=== PATIENT | male | born 1940 | race Caucasian/White ===

== ENCOUNTER 2016-07-09 18:28 | Inpatient (IN) | payer MEDICARE, OTHER ==
[~2016-07-09] VITALS: Ht 170.2 cm; Wt 154.9 kg
[~2016-07-09 18:28] MED LIST: ACET500T33; ACID1TAB PO; ALLO300T PO; AMIT10TA PO; ASCO500T3 PO; ASPI-482 PO; BUDE10.2 IH; CALC667C PO; CARB1TAB2 PO; CARB1TAB47 PO; CHOL20004 PO; DONE10TA14 PO; DULO30CA2 PO; ERYT250T14 PO; FERR-26 PO; FURO40TA4 PO; GABA600T2 PO; GLIP5TAB10 PO; HYDR-2666 PO; HYDR-971 PO; HYDR100T24 PO; HYDR1TAB20 PO; HYDR25TA PO; INSU100C4 SQ; INSU100V8 SQ; IPRA3AMP23 IH; ISOS30TA4 PO; ISOS60TA2 PO; LACT1CAP2 PO; LISI2.5T PO; LISI40TA PO; LORA10TA3 PO; LOSA100T6 PO; MAGN400T22 PO; MELA3TAB PO; METF500T4 PO; METO25TA4 PO; METO50TA2 PO; OMEP20CA9 PO; OXYB5TAB7 PO; POLY17PO5 PO; ROPI1TAB2 PO; SENN1TAB5 PO; SERT25TA4 PO; SILV400C TP; SIMV40TA3 PO; SPIR25TA3 PO; TRYP30OI2 TP
[2016-07-09 19:16] LABS: BASO # 0.1 x10^3/uL (0.0-0.2); BASO % 1 % (0-3); EOS % 3 % (0-3); HEMATOCRIT 38.7 % (39.0-53.0); HEMOGLOBIN 12.7 g/dL (13.0-17.5); LYMPH # 1.9 x10^3/uL (1.0-4.8); LYMPH % 15 % (24-48); MEAN CORPUSCULAR HEMOGLOBIN 31 pg (25-35); MEAN CORPUSCULAR HGB CONC 33 g/dL (31-37); MEAN CORPUSCULAR VOLUME 95 fL (79-100); MONO % 5 % (0-9); NEUT % 76 % (31-73); PLATELET COUNT 163 x10^3/uL (140-400); RED BLOOD COUNT 4.08 x10^6/uL (4.30-5.70); RED CELL DISTRIBUTION WIDTH 15.2 % (11.5-14.5); WHITE BLOOD COUNT 12.6 x10^3/uL (4.0-11.0)
[2016-07-09 19:28] LABS: CALCIUM 8.3 mg/dL (8.5-10.1); CREATININE 2.1 mg/dL (0.7-1.3); GFR 30.9; POTASSIUM 5.2 mmol/L (3.5-5.1)
[2016-07-09] MEDS ORDERED: IV NORMAL SALINE 500ML BAG 500 ML IV ONE (21:15)
[2016-07-09] MEDS ORDERED: ACETAMINOPHEN 325 MG TABLET. PO PRN (21:15)
[2016-07-09] MEDS ORDERED: ONDANSETRON PF 4 MG/2 ML VIAL. IV PRN (21:15)
--- NOTE | 2016-07-09 21:16 | PHYS DOC ---
Past Medical History Past Medical History: Angina, CHF, Constipation, Depression, Diabetes-Type I, Diabetes-Type II, GERD, Hypertension, MRSA, Renal Failure, UTI, Other Additional Past Medical Histor: SEPTICEMIA,NEUROGENIC BLADDER,CHRONIC RESP FAILURE,ESRD,RLS,PARKINSON,LYMPH Past Surgical History: Cholecystectomy, Other Additional Past Surgical Histo: pain pump L abdomen, ulnar nerve surgery, R ARM SURG X9 Alcohol Use: None Drug Use: None Adult General Chief Complaint Chief Complaint: CHEST PAIN HPI HPI This is a 75 year old male presents with an acute episode of left upper chest pain that radiates into his left arm. Patient states the episode lasted approximately one hour. Patient upon arrival now states he is completely chest pain-free. Patient does have history of a heart catheterization in the last several years that did show some diseased vessels but he has no stents. Patient does have history of hypertension diabetes and morbid obesity. Currently he is in no acute distress and has no acute complaints. Review of Systems Review of Systems Constitutional: Denies fever or chills [] Eyes: Denies change in visual acuity, redness, or eye pain [] HENT: Denies nasal congestion or sore throat [] Respiratory: Denies cough or shortness of breath [] Cardiovascular: No additional information not addressed in HPI [] GI: Denies abdominal pain, nausea, vomiting, bloody stools or diarrhea [] : Denies dysuria or hematuria [] Musculoskeletal: Denies back pain or joint pain [] Integument: Denies rash or skin lesions [] Neurologic: Denies headache, focal weakness or sensory changes [] Endocrine: Denies polyuria or polydipsia [] Current Medications Current Medications Current Medications Medications (Trade) Dose Ordered Sig/[facility] Start Time Stop Time Status Last Admin Dose Admin Acetaminophen (Tylenol) 650 mg PRN Q4HRS PRN 07/09/16 21:15 07/10/16 21:14 Aspirin 325 mg 325 mg 1X ONCE 07/09/16 21:30 07/09/16 21:31 DC 07/09/16 21:26 325 MG Enoxaparin Sodium (Lovenox 100mg Syringe) 100 mg 1X ONCE 07/09/16 21:30 07/09/16 21:31 DC 07/09/16 21:29 100 MG Ondansetron HCl (Zofran) 4 mg PRN Q8HRS PRN 07/09/16 21:15 07/10/16 21:14 Sodium Chloride (Iv Sodium Chloride 0.9% 500ml Bag) 500 ml @ 500 mls/hr 1X ONCE 07/09/16 21:15 07/09/16 22:14 07/09/16 21:27 500 MLS/HR Allergies Allergies Allergies Coded Allergies Type Severity Reaction Last Updated Verified hydrocodone Allergy Intermediate 04/15/14 Yes codeine Adverse Reaction Intermediate disoriented 04/15/14 Yes metolazone Adverse Reaction Intermediate 04/15/14 Yes Physical Exam Physical Exam Constitutional: Well developed, well nourished, no acute distress, non-toxic appearance. [] HENT: Normocephalic, atraumatic, bilateral external ears normal, oropharynx moist, no oral exudates, nose normal. [] Eyes: PERRLA, EOMI, conjunctiva normal, no discharge. [] Neck: Normal range of motion, no tenderness, supple, no stridor. [] Cardiovascular:Heart rate regular rhythm, no murmur [] Lungs & Thorax: Bilateral breath sounds clear to auscultation [] Abdomen: Bowel sounds normal, soft, no tenderness, no masses, no pulsatile masses. [] Skin: Warm, dry, no erythema, no rash. [] Back: No tenderness, no CVA tenderness. [] Extremities: No tenderness, no cyanosis, no clubbing, ROM intact, no edema. [] Neurologic: Alert and oriented X 3, normal motor function, normal sensory function, no focal deficits noted. [] Psychologic: Affect normal, judgement normal, mood normal. [] Current Patient Data Vital Signs Vital Signs Date Time Temp Pulse Resp B/P Pulse Ox O2 Delivery O2 Flow Rate FiO2 07/09/16 19:43 66 22 223/88 97 Room Air 07/09/16 18:28 97.9 97.9 Lab Values Laboratory Tests Test 07/09/16 19:10 White Blood Count 12.6x10^3/uL (4.0-11.0) H Red Blood Count 4.08x10^6/uL (4.30-5.70) L Hemoglobin 12.7g/dL (13.0-17.5) L Hematocrit 38.7% (39.0-53.0) L Mean Corpuscular Volume 95fL (79-100) Mean Corpuscular Hemoglobin 31pg (25-35) Mean Corpuscular Hemoglobin Concent 33g/dL (31-37) Red Cell Distribution Width 15.2% (11.5-14.5) H Platelet Count 163x10^3/uL (140-400) Neutrophils (%) (Auto) 76% (31-73) H Lymphocytes (%) (Auto) 15% (24-48) L Monocytes (%) (Auto) 5% (0-9) Eosinophils (%) (Auto) 3% (0-3) Basophils (%) (Auto) 1% (0-3) Neutrophils # (Auto) 9.6x10^3uL (1.8-7.7) H Lymphocytes # (Auto) 1.9x10^3/uL (1.0-4.8) Monocytes # (Auto) 0.6x10^3/uL (0.0-1.1) Eosinophils # (Auto) 0.4x10^3/uL (0.0-0.7) Basophils # (Auto) 0.1x10^3/uL (0.0-0.2) Sodium Level 139mmol/L (136-145) Potassium Level 5.2mmol/L (3.5-5.1) H Chloride Level 100mmol/L (98-107) Carbon Dioxide Level 30mmol/L (21-32) Anion Gap 9 (6-14) Blood Urea Nitrogen 57mg/dL (8-26) H Creatinine 2.1mg/dL (0.7-1.3) H Estimated GFR (Cockcroft-Gault) 30.9 Glucose Level 400mg/dL (70-99) H Calcium Level 8.3mg/dL (8.5-10.1) L Troponin I Quantitative < 0.017ng/mL (0.000-0.055) Laboratory Tests 07/09/16 19:10 Laboratory Tests 07/09/16 19:10 EKG EKG EKG as interpreted by me shows a sinus rhythm with a rate of 66 bpm. There are no acute ST findings on this EKG. There does appear to be a right bundle-branch block. Radiology/Procedures Radiology/Procedures Portable one view of the chest as interpreted me shows some moderate vascular congestion and cardiomegaly but no other acute findings. Course & Med Decision Making Course & Med Decision Making Pertinent Labs and Imaging studies reviewed. (See chart for details) This is 75-year-old male who had a brief episode of chest pain prior to arrival that has fully resolved. Patient was given a full aspirin in the department. His first set of cardiac enzymes is negative. His EKG does not reveal any acute findings of ischemia. I discussed the case with the hospitalist, Dr. Bullard, who agreed to accept the patient cardio to consult. I discussed the case with the reach lift truck driver, Dr. Price, who agrees to see the patient for further evaluation and treatment and will likely catheterize the patient upon this hospital stay. I was also instructed to give the patient a dose of Lovenox therapy. Blood work reveals slightly elevated BUN/creatinine that he has history of as well as a hyperglycemia of 400. Dragon Disclaimer Dragon Disclaimer This electronic medical record was generated, in whole or in part, using a voice recognition dictation system. Departure Departure Impression: Primary Impression: Chest pain Disposition: ADMITTED INPATIENT Admitting Physician: Brionna Bullard Condition: STABLE Referrals: ABDI JANE NP (PCP) YESICA PAK DO Jul 09, 2016 21:17
[2016-07-09] MEDS ORDERED: ENOXAPARIN ** NOTE DOSE ** SYRINGE SQ ONE (21:30)
[2016-07-09] MEDS ORDERED: ASPIRIN 325 MG TABLET PO ONE (21:30)
[2016-07-09] MEDS ORDERED: HYDROCODONE/APAP 5/325MG TABLET. PO PRN (22:30)
[2016-07-10] VITALS (7 sets, daily range): BP systolic 125–159; BP diastolic 46–64
--- NOTE | 2016-07-10 02:55 | HP ---
ADMIT DATE: 07/09/2016 CHIEF COMPLAINT: Chest pain. HISTORY OF PRESENT ILLNESS: The patient is a pleasant middle-aged male who has multiple medical issues and he has polypharmacy as well. He has got 28 medications. He presents with chest pain rated as 7/10. He has got associated weakness and anxiety, some nausea. I discussed the case with the ER physician. We are going to admit the patient and consult Cardiology. PAST MEDICAL HISTORY: Polypharmacy, diabetes, hypertension, hyperlipidemia restless legs, neuropathy, chronic pain, arthritis, asthma, GERD. ALLERGIES: CODEINE, HYDROCODONE AND METOLAZONE. FAMILY HISTORY: Coronary artery disease. SOCIAL HISTORY: He is . He does not drink, smoke or take drugs. MEDICATIONS: Reviewed, please refer to the MRAD. REVIEW OF SYSTEMS: GENERAL: No history of weight change, weakness or fevers. SKIN: No bruising, hair changes or rashes. EYES: No blurred, double or loss of vision. NOSE AND THROAT: No history of nosebleeds, hoarseness or sore throat. HEART: He complains of intermittent chest pain. LUNGS: Denies cough, hemoptysis, wheezing or shortness of breath. GASTROINTESTINAL: Denies changes in appetite, nausea, vomiting, diarrhea or constipation. GENITOURINARY: No history of frequency, urgency, hesitancy or nocturia. NEUROLOGIC: Denies history of numbness, tingling, tremor or weakness. PSYCHIATRIC: No history of panic, anxiety or depression. ENDOCRINE: No history of heat or cold intolerance, polyuria or polydipsia. EXTREMITIES: Denies muscle weakness, joint pain, pain on walking or stiffness. PHYSICAL EXAMINATION: VITAL SIGNS: Stable. Temperature afebrile, pulse 64, respirations 18, blood pressure 150/61. GENERAL: He is alert, cooperative, but anxious. His is present. HEART: Normal S1, S2. LUNGS: Clear. ABDOMEN: Soft, positive bowel sounds, obese. EXTREMITIES: 1+ edema. SKIN: No rashes. PSYCHIATRIC: He is anxious. VASCULAR: Good capillary refill. ENDOCRINE: No thyromegaly. LYMPHATICS: No cervical nodes. HEMATOPOIETIC: No bruising. LABORATORY DATA: White count 12, hemoglobin 12, platelets 163. Electrolytes: Sodium 139, potassium 5.2, chloride 100, bicarb 30, BUN 57, creatinine 2.1, glucose 400. Troponin is 0. ASSESSMENT AND PLAN: Chest pain, rule out coronary disease. We will check serial enzymes, serial EKGs. Consult cardiology. Resume home medicines. Regarding his high potassium and acute renal failure, we will consult Nephrology, Physical Therapy, Occupational Therapy. PROGNOSIS: Guarded. NIAL Venus LARA DO DR: PENNY/deepak JOB#: [id number] / [id number]
[2016-07-10] MEDS: IPRATRPIUM/ALBUTEROL 0.5/2.5MG 3 ML NEBU. IH SCH ×7 (04:40→23:18)
[2016-07-10 05:22] LABS: BASO # 0.1 x10^3/uL (0.0-0.2); BASO % 1 % (0-3); EOS % 4 % (0-3); HEMATOCRIT 36.7 % (39.0-53.0); HEMOGLOBIN 12.2 g/dL (13.0-17.5); LYMPH # 2.5 x10^3/uL (1.0-4.8); LYMPH % 19 % (24-48); MEAN CORPUSCULAR HEMOGLOBIN 31 pg (25-35); MEAN CORPUSCULAR HGB CONC 33 g/dL (31-37); MEAN CORPUSCULAR VOLUME 94 fL (79-100); MONO % 6 % (0-9); NEUT % 72 % (31-73); PLATELET COUNT 170 x10^3/uL (140-400); RED BLOOD COUNT 3.91 x10^6/uL (4.30-5.70); WHITE BLOOD COUNT 13.3 x10^3/uL (4.0-11.0)
[2016-07-10] MEDS: ACETAMINOPHEN 500 MG TABLET PO SCH ×3 (06:00→12:00)
--- NOTE | 2016-07-10 06:19 | EKG ---
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
[2016-07-10] MEDS ORDERED: INSU100V13 SQ (07:31)
[2016-07-10] MEDS ORDERED: INSU100V31 SQ (07:31)
[2016-07-10] MEDS ORDERED: SAXA5TAB PO (07:33)
[2016-07-10] MEDS ORDERED: GLIPIZIDE 5 MG TABLET PO SCH (08:00)
--- NOTE | 2016-07-10 08:17 | RAD ---
Portable AP upright view CXR: Clinical indications: Left-sided chest pain today. Comparison: August 20, 2014. Findings: No acute lung infiltrate or pleural effusion or pulmonary edema or lung mass or pneumothorax is seen. The heart size, pulmonary vasculature, mediastinum and both maritza are stable. Impression: No acute radiographic abnormality is seen.
[2016-07-10] MEDS ORDERED: DEXTROSE 50% 25 GM / 50ML DISP.SYRIN. IV PRN (08:30)
[2016-07-10] MEDS ORDERED: SENNOSIDES/DOCUSATE 8.6/50MG TABLET. PO SCH (09:00)
[2016-07-10] MEDS: rOPINIRole 1 MG TABLET. PO SCH ×3 (09:00→21:14)
[2016-07-10] MEDS ORDERED: POLYETHYLENE GLYCOL 3350 17 GM PACKET. PO SCH (09:00)
[2016-07-10] MEDS ORDERED: ISOSORBIDE MONONITRATE 20 MG TABLET PO SCH (09:00)
[2016-07-10] MEDS: CARBIDOPA/LEVODOPA 25/100MG TABLET PO SCH ×3 (09:00→21:14)
[2016-07-10] MEDS ORDERED: OXYBUTYNIN CHLORIDE 5 MG TABLET PO SCH (09:00)
[2016-07-10] MEDS ORDERED: silver sulfADIAZINE 1% CREAM 25GM TUBE. TP SCH (09:00)
[2016-07-10] MEDS: ERYTHROMYCIN BASE 250 MG TABLET PO SCH ×2 (09:00→12:43)
[2016-07-10] MEDS ORDERED: LISINOPRIL 40 MG TABLET. PO SCH (09:00)
[2016-07-10] MEDS: METOPROLOL TART IMMED RELEASE 50 MG TABLET PO SCH ×2 (09:00→21:15)
--- NOTE | 2016-07-10 10:31 | PDOC2 ---
JASON RAYGOZA CHUCKING MACHINE SET UP OPERATOR TOOL 07/10/16 1031: CARDIAC CONSULT DATE OF CONSULT Date of Consult DATE: 07/10/16 TIME: 10:23 REASON FOR CONSULT Reason for Consult: Chest Pain REFERRING PHYSICIAN Referring Physician: Dr. Webb SOURCE Source: Chart review, Patient HISTORY OF PRESENT ILLNESS HISTORY OF PRESENT ILLNESS This is a 75 yo female who presented with complaints of left chest pain. Reports pain began around 6 pm last night. Located in his left chest and radiated to his left arm. Describes as "burning" sensation. Associated with shortness of breath and left arm numbness and tingling. Patient reports pain was worse with movement and with laying down. Resolved prior to arrival without intervention. Denies any palpitations, dizziness, diaphoresis, or n/v. Presently CP free. Patient reports having heart cath "awhile ago" more than seven years previous with Dr. Mejía. Reports mild blockage but not significant enough for intervention at that time. History of chronic bilateral LE lymphedema. Receives care at the [facility] in [place]. Reports sedentary lifestyle; uses electric wheelchair for mobility. PAST MEDICAL HISTORY Cardiovascular: CAD (non-obstructive ), CHF, HTN, CO, Hyperlipidemia Pulmonary: Asthma, COPD, Other (KELLIE) CENTRAL NERVOUS SYSTEM: CVA, Dementia, Other (Parkinsons ) GI: GERD Psych: Anxiety, Depression Musculoskeletal: Osteoarthritis Rheumatologic: No pertinent hx Infectious disease: No pertinent hx ENT: No pertinent hx Renal/: Chronic renal insuff Endocrine: Diabetes Dermatology: No pertinent hx PAST SURGICAL HISTORY Past Surgical History: Cholecystectomy, Other (pain pump insertion, right arm sx) FAMILY HISTORY Family History: Coronary Artery Disease, Diabetes SOCIAL HISTORY Smoke: No ALCOHOL: none Drugs: None Lives: with Family CURRENT MEDICATIONS CURRENT MEDICATIONS Current Medications Medications (Trade) Dose Ordered Sig/[place] PRN Reason Start Time Stop Time Status Last Admin Dose Admin Aspirin 325 mg 325 mg 1X ONCE PO 07/09/16 21:30 07/09/16 21:31 DC 07/09/16 21:26 Sodium Chloride (Iv Sodium Chloride 0.9% 500ml Bag) 500 ml @ 500 mls/hr 1X ONCE IV 07/09/16 21:15 07/09/16 22:14 DC 07/09/16 21:27 Enoxaparin Sodium (Lovenox 100mg Syringe) 100 mg 1X ONCE SQ 07/09/16 21:30 07/09/16 21:31 DC 07/09/16 21:29 Albuterol/ Ipratropium (Duoneb) 3 ml Q4HRS IH 07/10/16 00:00 07/10/16 10:08 ALLERGIES ALLERGIES: Coded Allergies: hydrocodone (Verified Allergy, Intermediate, 04/15/14) codeine (Verified Adverse Reaction, Intermediate, disoriented, 04/15/14) metolazone (Verified Adverse Reaction, Intermediate, 04/15/14) ROS Review of System 14 point ROS conducted with pertinent positives noted above in HPI PHYSICAL EXAM General: Alert, Oriented X3, Cooperative, No acute distress HEENT: Atraumatic, Mucous membr. moist/pink Lungs: Other (diminisheds bases, central chest tenderness upon palpitation ) Heart: Regular rate, Normal S1, Normal S2, Other (distant heart tones) Abdomen: Soft, Other (obesity ) Extremities: Other (2+ bilateral LE edema with chronic venous stasis changes) Skin: No breakdown Neuro: Normal speech, Sensation intact Psych/Mental Status: Mental status NL, Mood NL MUSCULOSKELETAL: Osteoarthritic changes both hands VITALS VITALS Vital Signs Date Time Temp Pulse Resp B/P Pulse Ox O2 Delivery O2 Flow Rate FiO2 07/10/16 10:08 95 Room Air 07/10/16 07:59 97.2 81 20 143/64 97.2 LABS Lab: Laboratory Tests Test 07/09/16 19:10 07/10/16 03:30 07/10/16 08:11 07/10/16 08:55 White Blood Count 12.6x10^3/uL (4.0-11.0) 13.3x10^3/uL (4.0-11.0) Red Blood Count 4.08x10^6/uL (4.30-5.70) 3.91x10^6/uL (4.30-5.70) Hemoglobin 12.7g/dL (13.0-17.5) 12.2g/dL (13.0-17.5) Hematocrit 38.7% (39.0-53.0) 36.7% (39.0-53.0) Mean Corpuscular Volume 95fL (79-100) 94fL (79-100) Mean Corpuscular Hemoglobin 31pg (25-35) 31pg (25-35) Mean Corpuscular Hemoglobin Concent 33g/dL (31-37) 33g/dL (31-37) Red Cell Distribution Width 15.2% (11.5-14.5) 15.0% (11.5-14.5) Platelet Count 163x10^3/uL (140-400) 170x10^3/uL (140-400) Neutrophils (%) (Auto) 76% (31-73) 72% (31-73) Lymphocytes (%) (Auto) 15% (24-48) 19% (24-48) Monocytes (%) (Auto) 5% (0-9) 6% (0-9) Eosinophils (%) (Auto) 3% (0-3) 4% (0-3) Basophils (%) (Auto) 1% (0-3) 1% (0-3) Neutrophils # (Auto) 9.6x10^3uL (1.8-7.7) 9.5x10^3uL (1.8-7.7) Lymphocytes # (Auto) 1.9x10^3/uL (1.0-4.8) 2.5x10^3/uL (1.0-4.8) Monocytes # (Auto) 0.6x10^3/uL (0.0-1.1) 0.7x10^3/uL (0.0-1.1) Eosinophils # (Auto) 0.4x10^3/uL (0.0-0.7) 0.5x10^3/uL (0.0-0.7) Basophils # (Auto) 0.1x10^3/uL (0.0-0.2) 0.1x10^3/uL (0.0-0.2) Sodium Level 139mmol/L (136-145) Potassium Level 5.2mmol/L (3.5-5.1) Chloride Level 100mmol/L (98-107) Carbon Dioxide Level 30mmol/L (21-32) Anion Gap 9 (6-14) Blood Urea Nitrogen 57mg/dL (8-26) Creatinine 2.1mg/dL (0.7-1.3) Estimated GFR (Cockcroft-Gault) 30.9 Glucose Level 400mg/dL (70-99) Calcium Level 8.3mg/dL (8.5-10.1) Troponin I Quantitative < 0.017ng/mL (0.000-0.055) < 0.017ng/mL (0.000-0.055) < 0.017ng/mL (0.000-0.055) Glucose (Fingerstick) 162mg/dL (70-99) ECHOCARDIOGRAM ECHOCARDIOGRAM <Conclusion> Technically very limited study. Left ventricle systolic function is normal. The Ejection Fraction is 55-60%. There is moderate concentric left ventricular hypertrophy. The right ventricle is not well visualized. The right atrium is not well visualized. Cardiac valves were not well visualized. PA pressure could not be accurately estimated. Due to poor image quality, the IVC could not be assessed. There is no evidence of significant pericardial effusion. DATE: 04/20/14 1418 STRESS TEST STRESS TEST Conclusion 1. Abnormal baseline EKG but no EKG evidence of stressed induced ischemia. 2. Nuclear scans showed no significant reversible ischemia. 3. Nuclear scan show a fixed inferior wall defect most consistent with a diaphragmatic attenuation defect. 4. Normal left ventricular systolic function with an ejection fraction of 72%. 5. Low to moderate risk Lexiscan nuclear stress test. DATE: 04/21/14 1340 ASSESSMENT/PLAN ASSESSMENT/PLAN 1. Chest Pain, with typical and atypical features 2. Malignant hypertension 3. Coronary artery disease, non-obstructive 4. Hyperlipidemia 5. Hyperkalemia 6. CLARISSE with CKD 7. Diabetes, II 8. Dementia 9. Morbid obesity 10. GERD 11. KELLIE Recommendations troponin series normal- AMI ruled out check lipids. ASA Pain possibly MSK in origin as it is reproducible with palpation to central chest but given history and significant risk factors, will proceed with echo to assess LV function/presence of WMA. Maintain blood pressure control. Home medications clarified; will resume home antiHTN thearpy and monitor trends to assess need for titration. Hydralazine PRN Problems: JAYCEE HAN MD 07/10/161948: CARDIAC CONSULT ALLERGIES ALLERGIES: Coded Allergies: hydrocodone (Verified Allergy, Intermediate, 04/15/14) codeine (Verified Adverse Reaction, Intermediate, disoriented, 04/15/14) metolazone (Verified Adverse Reaction, Intermediate, 04/15/14) ASSESSMENT/PLAN ASSESSMENT/PLAN Patient seen and examined. Agree with above nurse practitioner note. 75-year-old sedentary male who presents to the hospital in the setting of multiple complaints of muscular skeletal pain. His chest pain is clearly reproducible. This does not appear to be related to cardiac etiology. Medications reviewed. Laboratory studies reviewed. Continue supportive care. No further cardiac testing necessary. Patient will follow up with his primary care physician at the [facility]. Problems: JASON RAYGOZA APRN Jul 10, 2016 10:31 JAYCEE HAN MD Jul 10, 2016 19:49
[2016-07-10 11:38] LABS: CALCIUM 8.1 mg/dL (8.5-10.1); CREATININE 1.9 mg/dL (0.7-1.3); GFR 34.7; POTASSIUM 4.6 mmol/L (3.5-5.1)
[2016-07-10] MEDS ORDERED: GLIP10TA13 PO (12:34)
[2016-07-10] MEDS ORDERED: TERA2CAP3 PO (12:34)
[2016-07-10] MEDS ORDERED: ISOS10TA4 PO (12:34)
[2016-07-10] MEDS ORDERED: DOCU100C5 PO (12:34)
[2016-07-10] MEDS ORDERED: ASCO500T3 PO (12:34)
[2016-07-10] MEDS ORDERED: ATOR20TA58 PO (12:34)
[2016-07-10] MEDS ORDERED: MAGN400T3 PO (12:34)
[2016-07-10] MEDS ORDERED: BUME2TAB PO (12:34)
[2016-07-10] MEDS ORDERED: SPIR25TA3 PO (12:34)
[2016-07-10] MEDS ORDERED: BUMETANIDE 1 MG TABLET PO SCH (12:45)
[2016-07-10] MEDS ORDERED: SPIRONOLACTONE 25 MG TABLET PO SCH (12:45)
[2016-07-10] MEDS ORDERED: hydrALAZINE 20 MG/ML VIAL. IVP PRN ×2 (13:00→15:30)
[2016-07-10 13:21] LABS: CHOLESTEROL/HDL RATIO 3.6
[2016-07-10] MEDS: GABAPENTIN 300 MG CAPSULE. PO SCH ×2 (15:00→21:14)
--- NOTE | 2016-07-10 15:30 | PDOC2 ---
CONSULT Date of Consult Date of Consult DATE: 07/10/16 TIME: 15:29 Reason for Consult Reason for Consult: ^ creat Referring Physician Referring Physician: Dr Bullard Source Source: Chart review, Patient Past Medical History Cardiovascular: CAD (non-obstructive ), CHF, HTN, [place], Hyperlipidemia Pulmonary: Asthma, COPD, Other (KELLIE) CENTRAL NERVOUS SYSTEM: CVA, Dementia, Other (Parkinsons ) GI: GERD Heme/Onc: Anemia NOS Hepatobiliary: No pertinent hx Psych: Anxiety, Depression Musculoskeletal: Osteoarthritis Rheumatologic: No pertinent hx Infectious disease: No pertinent hx ENT: No pertinent hx Renal/: Chronic renal insuff Endocrine: Diabetes Dermatology: No pertinent hx Past Surgical History Past Surgical History: Cholecystectomy, Other (pain pump insertion, right arm sx) Family History Family History: Coronary Artery Disease, Diabetes Social History No ALCOHOL: none Drugs: None Lives: with Family Domestic Violence: Neg Current Problem List Problem List Problems Medical Problems: (1) Abdominal pain Status: Acute (2) Chest pain Status: Acute (3) Hypertensive urgency Status: Acute Current Medications Current Medications Current Medications Aspirin 325 mg 325 mg 1X ONCE PO Last administered on 07/09/16 21:26; Start at 21:30; Stop 07/09/16 at 21:31; Status DC Sodium Chloride (Iv Sodium Chloride 0.9% 500ml Bag) 500 ml @ 500 mls/hr 1X ONCE IV Last administered on 07/09/16 21:27; Start 07/09/16 at 21:15; Stop at 22:14; Status DC Ondansetron HCl (Zofran) 4 mg PRN Q8HRS PRN IV NAUSEA/VOMITING; Start 07/09/16 at 21:15; Stop 07/10/16 at 21:14 Acetaminophen (Tylenol) 650 mg PRN Q4HRS PRN PO FEVER; Start 07/09/16 at 21:15; Stop 07/10/16 at 21:14 Enoxaparin Sodium (Lovenox 100mg Syringe) 100 mg 1X ONCE SQ Last administered on 07/09/16 21:29; Start 07/09/16 at 21:30; Stop 07/09/16 at 21:31; Status DC Acetaminophen (Tylenol) 500 mg Q6HRS PO ; Start 07/10/16 at 00:00; Stop at 14:49; Status DC Aspirin (Ecotrin) 81 mg DAILY PO ; Start 07/10/16 at 09:00 Carbidopa/Levodopa (Sinemet 25/100) 1 tab TID PO ; Start 07/10/16 at 09:00 Duloxetine HCl (Cymbalta) 30 mg DAILY PO ; Start 07/10/16 at 09:00 Erythromycin (E-Mycin) 125 mg QID PO ; Start 07/10/16 at 09:00; Stop 07/10/16 at 14:49; Status DC Ferrous Sulfate (Feosol) 325 mg DAILY PO ; Start 07/10/16 at 09:00 Glipizide (Glucotrol) 5 mg BIDWMEALS PO ; Start 07/10/16 at 08:00; Stop at 12:48; Status DC Acetaminophen/ Hydrocodone Bitart (Lortab 5/325) 1 tab PRN Q6HRS PRN PO PAIN; Start 07/09/16 at 22:30 Albuterol/ Ipratropium (Duoneb) 3 ml Q4HRS IH Last administered on 07/10/16t 12 :57; Start 07/10/16 at 00:00 Isosorbide Mononitrate (Ismo) 20 mg TID PO ; Start 07/10/16 at 09:00; Stop 07/10 at 12:48; Status DC Lisinopril (Prinivil) 40 mg DAILY PO ; Start 07/10/16 at 09:00; Stop 07/10/16 at 12:48; Status DC Metoprolol Tartrate (Lopressor) 50 mg BID PO ; Start 07/10/16 at 09:00 Oxybutynin Chloride (Ditropan) 5 mg DAILY PO ; Start 07/10/16 at 09:00; Stop 03/16 at 12:48; Status DC Polyethylene Glycol (miraLAX PACKET) 17 gm DAILY PO ; Start 07/10/16 at 09:00; Stop 07/10/16 at 14:49; Status DC Ropinirole HCl (Requip) 1 mg TID PO ; Start 07/10/16 at 09:00 Senna/Docusate Sodium (Senna Plus) 1 tab BID PO ; Start 07/10/16 at 09:00; Stop 07/10/16 at 14:49; Status DC Silver Sulfadiazine (Silvadene) 1 bijal DAILY TP ; Start 07/10/16 at 09:00; Stop 07/10/16 at 14:49; Status DC Dextrose 12.5 gm PRN Q15MIN PRN IV SEE COMMENTS; Start 07/10/16 at 08:30 Glipizide (Glucotrol) 10 mg BIDWMEALS PO ; Start 07/10/16 at 17:00 Isosorbide Mononitrate (Imdur) 30 mg DAILY PO ; Start 07/10/16 at 12:45 Spironolactone (Aldactone) 25 mg DAILY PO ; Start 07/10/16 at 12:45 Bumetanide (Bumex) 2 mg DAILY PO ; Start 07/10/16 at 12:45 Atorvastatin Calcium (Lipitor) 20 mg QHS PO ; Start 07/10/16 at 21:00 Hydralazine HCl (Apresoline) 10 mg PRN Q4HRS PRN IVP ELEVATED BP, SEE COMMENTS ; Start 07/10/16 at 13:00 Ascorbic Acid (Vitamin C) 500 mg DAILY PO ; Start 07/10/16 at 15:00 Docusate Sodium (Colace) 100 mg BID PO ; Start 07/10/16 at 21:00 Insulin Aspart (Novolog) 30 units DAILYBFRSUP SQ ; Start 07/10/16 at 16:30 Magnesium Oxide (Magnesium Oxide) 400 mg BID PO ; Start 07/10/16 at 21:00 Gabapentin (Neurontin) 600 mg TID PO ; Start 07/10/16 at 15:00 Insulin Aspart (Novolog) 20 units BIDWBKFT/EDUIN SQ ; Start 07/11/16 at 08:00 Insulin Detemir (Levemir) 80 units DAILY08 SQ ; Start 07/11/16 at 08:00 Linagliptin (Tradjenta) 5 mg DAILY PO ; Start 07/11/16 at 09:00 Terazosin HCl (Hytrin) 2 mg QHS PO ; Start 07/10/16 at 21:00 Active Scripts Active Reported Isosorbide Mononitrate 10 Mg Tablet 30 Mg PO DAILY Ascorbic Acid 500 Mg Tablet 500 Mg PO DAILY Magnesium Oxide 400 Mg Tablet 1 Tab PO BID Bumetanide 2 Mg Tablet 1 Tab PO DAILY Glipizide 10 Mg Tablet 1 Tab PO BID Atorvastatin Calcium 20 Mg Tablet 1 Tab PO DAILY Terazosin Hcl 2 Mg Capsule 1 Cap PO QHS Docusate Sodium 100 Mg Capsule 1 Cap PO BID Spironolactone 25 Mg Tablet 1 Tab PO DAILY Onglyza (Saxagliptin Hcl) 5 Mg Tablet 2.5 Mg PO DAILY Levemir (Insulin Detemir) 100 Unit/1 Ml Vial 80 Unit SQ DAILY08 Novolog (Insulin Aspart) 100 Unit/1 Ml Vial 30 Unit SQ DAILYBFRSUP Cymbalta (Duloxetine Hcl) 30 Mg Capsule.dr 1 Cap PO DAILY Sinemet 25-100 Mg Tablet (Carbidopa/Levodopa) 1 Each Tablet 1 Tab PO TID Metoprolol Tartrate 50 Mg Tablet 1 Tab PO BID Ropinirole Hcl 1 Mg Tablet 1 Mg PO TID Omeprazole 20 Mg Capsule.dr 20 Mg PO DAILY Novolog (Insulin Aspart) 100 Unit/1 Ml Cartridge 20 Unit SQ BIDWBKFT/EDUIN Gabapentin 600 Mg Tablet 600 Mg PO TID Ferrous Sulfate 325 Mg Tablet 325 Mg PO DAILY Aspir 81 (Aspirin) 81 Mg Tablet.dr 81 Mg PO DAILY Allergies Allergies: Coded Allergies: hydrocodone (Verified Allergy, Intermediate, 04/15/14) codeine (Verified Adverse Reaction, Intermediate, disoriented, 04/15/14) metolazone (Verified Adverse Reaction, Intermediate, 04/15/14) ROS Review of System GEN: no Fevers no Chills EYES: no new Visual Complaints ENT: no EN Drainage no Hearing deficiets CVS: no Orthopnea + CP + Ch Lymphedema RESP: no SOB no CORRIGAN GI: no Nausea no Vomiting : no Dysuria no Urgency HEME: no easy bruising no Palp Ly Nodes NEURO no Focal Weakness no Sz PSYCH: no Suicidal Ideation no Depression SKIN: no Rashes ENDO: no Polyuria or Polydipsia no Hot/Cold Intolerance MU SK: ch Arthraigia no Myalgia Physical Exam Physical Exam General Appearance: Awake Alert Oriented x 3 In no Distress; Morbidly obese and Bald Eyes: VIsion Unchanged Conjunctiva Normal EN: No EN Drainage Mucous Memb. moist Neck: no JVD no JVP Supple no Thyromegaly; Thick neck with Double chin CVS: S1 S2 no Murmur No Gallop No Rub Tr Edema Resp: no Rales no Rhonchi no Acc. Muscle use - Distal BS GI: BS +ve NO Bruit Non Tender Non Distended - morbidly Obese : no CVA tenderness; no Suprapubic Tenderness SKIN: no Rashes Breast Exam deferred Mu.Sk: Dec ROM no Muscle Atrophy Heme: Unable to palpate Obvious LAD no pal p Splenomegaly NEURO: Decreased Strength in lower ext Cranial Nerves II - XII grossly intact Psych: no Depressed no Active hallucination Vital Signs Vital Signs Date Time Temp Pulse Resp B/P Pulse Ox O2 Delivery O2 Flow Rate FiO2 07/10/16 12:58 95 Room Air 07/10/16 11:55 97.3 93 21 159/58 97.3 Assessment & Plan [place] - suspect VMn due to Diuretics. Current FLuid and E-lyte status does not necessitate emergent need for Dialysis. ? CKD III - will need 24hr Urine collection to assess baseline Renal function due to poor muscle turnover asso with Inactivity AEdema - mostly [id number] associated and dependency related HTN: Current BP meds reviewed. See orders for changes. vol Dpeltion - due to Diuretics - No IVF ordered, hold Diuretics for 48 hrs Discussed Plan of Care and prognosis etc. at length with family. Labs Labs Laboratory Tests Test 07/09/16 19:10 07/10/16 03:30 07/10/16 08:11 07/10/16 08:55 White Blood Count 12.6x10^3/uL (4.0-11.0) 13.3x10^3/uL (4.0-11.0) Red Blood Count 4.08x10^6/uL (4.30-5.70) 3.91x10^6/uL (4.30-5.70) Hemoglobin 12.7g/dL (13.0-17.5) 12.2g/dL (13.0-17.5) Hematocrit 38.7% (39.0-53.0) 36.7% (39.0-53.0) Mean Corpuscular Volume 95fL (79-100) 94fL (79-100) Mean Corpuscular Hemoglobin 31pg (25-35) 31pg (25-35) Mean Corpuscular Hemoglobin Concent 33g/dL (31-37) 33g/dL (31-37) Red Cell Distribution Width 15.2% (11.5-14.5) 15.0% (11.5-14.5) Platelet Count 163x10^3/uL (140-400) 170x10^3/uL (140-400) Neutrophils (%) (Auto) 76% (31-73) 72% (31-73) Lymphocytes (%) (Auto) 15% (24-48) 19% (24-48) Monocytes (%) (Auto) 5% (0-9) 6% (0-9) Eosinophils (%) (Auto) 3% (0-3) 4% (0-3) Basophils (%) (Auto) 1% (0-3) 1% (0-3) Neutrophils # (Auto) 9.6x10^3uL (1.8-7.7) 9.5x10^3uL (1.8-7.7) Lymphocytes # (Auto) 1.9x10^3/uL (1.0-4.8) 2.5x10^3/uL (1.0-4.8) Monocytes # (Auto) 0.6x10^3/uL (0.0-1.1) 0.7x10^3/uL (0.0-1.1) Eosinophils # (Auto) 0.4x10^3/uL (0.0-0.7) 0.5x10^3/uL (0.0-0.7) Basophils # (Auto) 0.1x10^3/uL (0.0-0.2) 0.1x10^3/uL (0.0-0.2) Sodium Level 139mmol/L (136-145) 141mmol/L (136-145) Potassium Level 5.2mmol/L (3.5-5.1) 4.6mmol/L (3.5-5.1) Chloride Level 100mmol/L (98-107) 103mmol/L (98-107) Carbon Dioxide Level 30mmol/L (21-32) 27mmol/L (21-32) Anion Gap 9 (6-14) 11 (6-14) Blood Urea Nitrogen 57mg/dL (8-26) 50mg/dL (8-26) Creatinine 2.1mg/dL (0.7-1.3) 1.9mg/dL (0.7-1.3) Estimated GFR (Cockcroft-Gault) 30.9 34.7 Glucose Level 400mg/dL (70-99) 172mg/dL (70-99) Calcium Level 8.3mg/dL (8.5-10.1) 8.1mg/dL (8.5-10.1) Troponin I Quantitative < 0.017ng/mL (0.000-0.055) < 0.017ng/mL (0.000-0.055) < 0.017ng/mL (0.000-0.055) Glucose (Fingerstick) 162mg/dL (70-99) Magnesium Level 2.0mg/dL (1.8-2.4) Triglycerides Level 162mg/dL (0-150) Cholesterol Level 124mg/dL (0-200) LDL Cholesterol, Calculated 58mg/dL (0-100) VLDL Cholesterol, Calculated 32mg/dL (0-40) HDL Cholesterol 34mg/dL (40-60) Cholesterol/HDL Ratio 3.6 Test 07/10/16 11:59 Glucose (Fingerstick) 199mg/dL (70-99) Laboratory Tests Test 07/09/16 19:10 07/10/16 03:30 07/10/16 08:11 07/10/16 08:55 White Blood Count 12.6x10^3/uL (4.0-11.0) 13.3x10^3/uL (4.0-11.0) Red Blood Count 4.08x10^6/uL (4.30-5.70) 3.91x10^6/uL (4.30-5.70) Hemoglobin 12.7g/dL (13.0-17.5) 12.2g/dL (13.0-17.5) Hematocrit 38.7% (39.0-53.0) 36.7% (39.0-53.0) Mean Corpuscular Volume 95fL (79-100) 94fL (79-100) Mean Corpuscular Hemoglobin 31pg (25-35) 31pg (25-35) Mean Corpuscular Hemoglobin Concent 33g/dL (31-37) 33g/dL (31-37) Red Cell Distribution Width 15.2% (11.5-14.5) 15.0% (11.5-14.5) Platelet Count 163x10^3/uL (140-400) 170x10^3/uL (140-400) Neutrophils (%) (Auto) 76% (31-73) 72% (31-73) Lymphocytes (%) (Auto) 15% (24-48) 19% (24-48) Monocytes (%) (Auto) 5% (0-9) 6% (0-9) Eosinophils (%) (Auto) 3% (0-3) 4% (0-3) Basophils (%) (Auto) 1% (0-3) 1% (0-3) Neutrophils # (Auto) 9.6x10^3uL (1.8-7.7) 9.5x10^3uL (1.8-7.7) Lymphocytes # (Auto) 1.9x10^3/uL (1.0-4.8) 2.5x10^3/uL (1.0-4.8) Monocytes # (Auto) 0.6x10^3/uL (0.0-1.1) 0.7x10^3/uL (0.0-1.1) Eosinophils # (Auto) 0.4x10^3/uL (0.0-0.7) 0.5x10^3/uL (0.0-0.7) Basophils # (Auto) 0.1x10^3/uL (0.0-0.2) 0.1x10^3/uL (0.0-0.2) Sodium Level 139mmol/L (136-145) 141mmol/L (136-145) Potassium Level 5.2mmol/L (3.5-5.1) 4.6mmol/L (3.5-5.1) Chloride Level 100mmol/L (98-107) 103mmol/L (98-107) Carbon Dioxide Level 30mmol/L (21-32) 27mmol/L (21-32) Anion Gap 9 (6-14) 11 (6-14) Blood Urea Nitrogen 57mg/dL (8-26) 50mg/dL (8-26) Creatinine 2.1mg/dL (0.7-1.3) 1.9mg/dL (0.7-1.3) Estimated GFR (Cockcroft-Gault) 30.9 34.7 Glucose Level 400mg/dL (70-99) 172mg/dL (70-99) Calcium Level 8.3mg/dL (8.5-10.1) 8.1mg/dL (8.5-10.1) Troponin I Quantitative < 0.017ng/mL (0.000-0.055) < 0.017ng/mL (0.000-0.055) < 0.017ng/mL (0.000-0.055) Glucose (Fingerstick) 162mg/dL (70-99) Magnesium Level 2.0mg/dL (1.8-2.4) Triglycerides Level 162mg/dL (0-150) Cholesterol Level 124mg/dL (0-200) LDL Cholesterol, Calculated 58mg/dL (0-100) VLDL Cholesterol, Calculated 32mg/dL (0-40) HDL Cholesterol 34mg/dL (40-60) Cholesterol/HDL Ratio 3.6 Test 07/10/16 11:59 Glucose (Fingerstick) 199mg/dL (70-99) FANTASMA NAZARIO MD Jul 10, 2016 15:30
--- NOTE | 2016-07-10 15:36 | PDOC ---
PROGRESS NOTES Chief Complaint Chief Complaint CC: chest pain 1. Chest Pain, possible MSK related 2. HTN not controlled 3. Coronary artery disease, non-obstructive 4. Hyperlipidemia 5. Hyperkalemia 6. CLARISSE with CKD 7. Diabetes, II insulin dep 8. Dementia 9. Morbid obesity Plan 3 sets of troponin Echo cardiogram pending VQ scan r/o PE SSI Home medications reviewed, medications corrected, d/w RN, Earlier medications started on him were not correct. SSI PRN hydralazine for HTN Renal functions monitor, nephrology consultation pending Decreed physical mobility DVT prophylaxis. Prognosis guarded. Vitals Vitals Vital Signs Date Time Temp Pulse Resp B/P Pulse Ox O2 Delivery O2 Flow Rate FiO2 07/10/16 12:58 95 Room Air 07/10/16 11:55 97.3 93 21 159/58 97.3 Physical Exam General: Alert, Oriented X3, Cooperative, No acute distress, Other (obese) Heart: Regular rate, Normal S1, Normal S2, Other (distant heart tones) Lungs: Clear, Other Abdomen: Soft, Other (obesity ) Extremities: Other (2+ bilateral LE edema with chronic venous stasis changes) Skin: No breakdown Labs LABS Laboratory Tests Test 07/09/16 19:10 07/10/16 03:30 07/10/16 08:11 07/10/16 08:55 White Blood Count 12.6x10^3/uL (4.0-11.0) 13.3x10^3/uL (4.0-11.0) Red Blood Count 4.08x10^6/uL (4.30-5.70) 3.91x10^6/uL (4.30-5.70) Hemoglobin 12.7g/dL (13.0-17.5) 12.2g/dL (13.0-17.5) Hematocrit 38.7% (39.0-53.0) 36.7% (39.0-53.0) Mean Corpuscular Volume 95fL (79-100) 94fL (79-100) Mean Corpuscular Hemoglobin 31pg (25-35) 31pg (25-35) Mean Corpuscular Hemoglobin Concent 33g/dL (31-37) 33g/dL (31-37) Red Cell Distribution Width 15.2% (11.5-14.5) 15.0% (11.5-14.5) Platelet Count 163x10^3/uL (140-400) 170x10^3/uL (140-400) Neutrophils (%) (Auto) 76% (31-73) 72% (31-73) Lymphocytes (%) (Auto) 15% (24-48) 19% (24-48) Monocytes (%) (Auto) 5% (0-9) 6% (0-9) Eosinophils (%) (Auto) 3% (0-3) 4% (0-3) Basophils (%) (Auto) 1% (0-3) 1% (0-3) Neutrophils # (Auto) 9.6x10^3uL (1.8-7.7) 9.5x10^3uL (1.8-7.7) Lymphocytes # (Auto) 1.9x10^3/uL (1.0-4.8) 2.5x10^3/uL (1.0-4.8) Monocytes # (Auto) 0.6x10^3/uL (0.0-1.1) 0.7x10^3/uL (0.0-1.1) Eosinophils # (Auto) 0.4x10^3/uL (0.0-0.7) 0.5x10^3/uL (0.0-0.7) Basophils # (Auto) 0.1x10^3/uL (0.0-0.2) 0.1x10^3/uL (0.0-0.2) Sodium Level 139mmol/L (136-145) 141mmol/L (136-145) Potassium Level 5.2mmol/L (3.5-5.1) 4.6mmol/L (3.5-5.1) Chloride Level 100mmol/L (98-107) 103mmol/L (98-107) Carbon Dioxide Level 30mmol/L (21-32) 27mmol/L (21-32) Anion Gap 9 (6-14) 11 (6-14) Blood Urea Nitrogen 57mg/dL (8-26) 50mg/dL (8-26) Creatinine 2.1mg/dL (0.7-1.3) 1.9mg/dL (0.7-1.3) Estimated GFR (Cockcroft-Gault) 30.9 34.7 Glucose Level 400mg/dL (70-99) 172mg/dL (70-99) Calcium Level 8.3mg/dL (8.5-10.1) 8.1mg/dL (8.5-10.1) Troponin I Quantitative < 0.017ng/mL (0.000-0.055) < 0.017ng/mL (0.000-0.055) < 0.017ng/mL (0.000-0.055) Glucose (Fingerstick) 162mg/dL (70-99) Magnesium Level 2.0mg/dL (1.8-2.4) Triglycerides Level 162mg/dL (0-150) Cholesterol Level 124mg/dL (0-200) LDL Cholesterol, Calculated 58mg/dL (0-100) VLDL Cholesterol, Calculated 32mg/dL (0-40) HDL Cholesterol 34mg/dL (40-60) Cholesterol/HDL Ratio 3.6 Test 07/10/16 11:59 Glucose (Fingerstick) 199mg/dL (70-99) Assessment and Plan Assessmemt and Plan Problems Medical Problems: (1) Abdominal pain Status: Acute (2) Chest pain Status: Acute (3) Hypertensive urgency Status: Acute Problems: Comment Review of Relevant I have reviewed the following items dodie (where applicable) has been applied. Labs Laboratory Tests Test 07/09/16 19:10 07/10/16 03:30 07/10/16 08:11 07/10/16 08:55 White Blood Count 12.6x10^3/uL (4.0-11.0) 13.3x10^3/uL (4.0-11.0) Red Blood Count 4.08x10^6/uL (4.30-5.70) 3.91x10^6/uL (4.30-5.70) Hemoglobin 12.7g/dL (13.0-17.5) 12.2g/dL (13.0-17.5) Hematocrit 38.7% (39.0-53.0) 36.7% (39.0-53.0) Mean Corpuscular Volume 95fL (79-100) 94fL (79-100) Mean Corpuscular Hemoglobin 31pg (25-35) 31pg (25-35) Mean Corpuscular Hemoglobin Concent 33g/dL (31-37) 33g/dL (31-37) Red Cell Distribution Width 15.2% (11.5-14.5) 15.0% (11.5-14.5) Platelet Count 163x10^3/uL (140-400) 170x10^3/uL (140-400) Neutrophils (%) (Auto) 76% (31-73) 72% (31-73) Lymphocytes (%) (Auto) 15% (24-48) 19% (24-48) Monocytes (%) (Auto) 5% (0-9) 6% (0-9) Eosinophils (%) (Auto) 3% (0-3) 4% (0-3) Basophils (%) (Auto) 1% (0-3) 1% (0-3) Neutrophils # (Auto) 9.6x10^3uL (1.8-7.7) 9.5x10^3uL (1.8-7.7) Lymphocytes # (Auto) 1.9x10^3/uL (1.0-4.8) 2.5x10^3/uL (1.0-4.8) Monocytes # (Auto) 0.6x10^3/uL (0.0-1.1) 0.7x10^3/uL (0.0-1.1) Eosinophils # (Auto) 0.4x10^3/uL (0.0-0.7) 0.5x10^3/uL (0.0-0.7) Basophils # (Auto) 0.1x10^3/uL (0.0-0.2) 0.1x10^3/uL (0.0-0.2) Sodium Level 139mmol/L (136-145) 141mmol/L (136-145) Potassium Level 5.2mmol/L (3.5-5.1) 4.6mmol/L (3.5-5.1) Chloride Level 100mmol/L (98-107) 103mmol/L (98-107) Carbon Dioxide Level 30mmol/L (21-32) 27mmol/L (21-32) Anion Gap 9 (6-14) 11 (6-14) Blood Urea Nitrogen 57mg/dL (8-26) 50mg/dL (8-26) Creatinine 2.1mg/dL (0.7-1.3) 1.9mg/dL (0.7-1.3) Estimated GFR (Cockcroft-Gault) 30.9 34.7 Glucose Level 400mg/dL (70-99) 172mg/dL (70-99) Calcium Level 8.3mg/dL (8.5-10.1) 8.1mg/dL (8.5-10.1) Troponin I Quantitative < 0.017ng/mL (0.000-0.055) < 0.017ng/mL (0.000-0.055) < 0.017ng/mL (0.000-0.055) Glucose (Fingerstick) 162mg/dL (70-99) Magnesium Level 2.0mg/dL (1.8-2.4) Triglycerides Level 162mg/dL (0-150) Cholesterol Level 124mg/dL (0-200) LDL Cholesterol, Calculated 58mg/dL (0-100) VLDL Cholesterol, Calculated 32mg/dL (0-40) HDL Cholesterol 34mg/dL (40-60) Cholesterol/HDL Ratio 3.6 Test 07/10/16 11:59 Glucose (Fingerstick) 199mg/dL (70-99) Laboratory Tests Test 07/09/16 19:10 07/10/16 03:30 07/10/16 08:11 07/10/16 08:55 White Blood Count 12.6x10^3/uL (4.0-11.0) 13.3x10^3/uL (4.0-11.0) Red Blood Count 4.08x10^6/uL (4.30-5.70) 3.91x10^6/uL (4.30-5.70) Hemoglobin 12.7g/dL (13.0-17.5) 12.2g/dL (13.0-17.5) Hematocrit 38.7% (39.0-53.0) 36.7% (39.0-53.0) Mean Corpuscular Volume 95fL (79-100) 94fL (79-100) Mean Corpuscular Hemoglobin 31pg (25-35) 31pg (25-35) Mean Corpuscular Hemoglobin Concent 33g/dL (31-37) 33g/dL (31-37) Red Cell Distribution Width 15.2% (11.5-14.5) 15.0% (11.5-14.5) Platelet Count 163x10^3/uL (140-400) 170x10^3/uL (140-400) Neutrophils (%) (Auto) 76% (31-73) 72% (31-73) Lymphocytes (%) (Auto) 15% (24-48) 19% (24-48) Monocytes (%) (Auto) 5% (0-9) 6% (0-9) Eosinophils (%) (Auto) 3% (0-3) 4% (0-3) Basophils (%) (Auto) 1% (0-3) 1% (0-3) Neutrophils # (Auto) 9.6x10^3uL (1.8-7.7) 9.5x10^3uL (1.8-7.7) Lymphocytes # (Auto) 1.9x10^3/uL (1.0-4.8) 2.5x10^3/uL (1.0-4.8) Monocytes # (Auto) 0.6x10^3/uL (0.0-1.1) 0.7x10^3/uL (0.0-1.1) Eosinophils # (Auto) 0.4x10^3/uL (0.0-0.7) 0.5x10^3/uL (0.0-0.7) Basophils # (Auto) 0.1x10^3/uL (0.0-0.2) 0.1x10^3/uL (0.0-0.2) Sodium Level 139mmol/L (136-145) 141mmol/L (136-145) Potassium Level 5.2mmol/L (3.5-5.1) 4.6mmol/L (3.5-5.1) Chloride Level 100mmol/L (98-107) 103mmol/L (98-107) Carbon Dioxide Level 30mmol/L (21-32) 27mmol/L (21-32) Anion Gap 9 (6-14) 11 (6-14) Blood Urea Nitrogen 57mg/dL (8-26) 50mg/dL (8-26) Creatinine 2.1mg/dL (0.7-1.3) 1.9mg/dL (0.7-1.3) Estimated GFR (Cockcroft-Gault) 30.9 34.7 Glucose Level 400mg/dL (70-99) 172mg/dL (70-99) Calcium Level 8.3mg/dL (8.5-10.1) 8.1mg/dL (8.5-10.1) Troponin I Quantitative < 0.017ng/mL (0.000-0.055) < 0.017ng/mL (0.000-0.055) < 0.017ng/mL (0.000-0.055) Glucose (Fingerstick) 162mg/dL (70-99) Magnesium Level 2.0mg/dL (1.8-2.4) Triglycerides Level 162mg/dL (0-150) Cholesterol Level 124mg/dL (0-200) LDL Cholesterol, Calculated 58mg/dL (0-100) VLDL Cholesterol, Calculated 32mg/dL (0-40) HDL Cholesterol 34mg/dL (40-60) Cholesterol/HDL Ratio 3.6 Test 07/10/16 11:59 Glucose (Fingerstick) 199mg/dL (70-99) Medications Current Medications Aspirin 325 mg 325 mg 1X ONCE PO Last administered on 07/09/16 21:26; Start at 21:30; Stop 07/09/16 at 21:31; Status DC Sodium Chloride (Iv Sodium Chloride 0.9% 500ml Bag) 500 ml @ 500 mls/hr 1X ONCE IV Last administered on 07/09/16 21:27; Start 07/09/16 at 21:15; Stop at 22:14; Status DC Ondansetron HCl (Zofran) 4 mg PRN Q8HRS PRN IV NAUSEA/VOMITING; Start 07/09/16 at 21:15; Stop 07/10/16 at 21:14 Acetaminophen (Tylenol) 650 mg PRN Q4HRS PRN PO FEVER; Start 07/09/16 at 21:15; Stop 07/10/16 at 21:14 Enoxaparin Sodium (Lovenox 100mg Syringe) 100 mg 1X ONCE SQ Last administered on 07/09/16 21:29; Start 07/09/16 at 21:30; Stop 07/09/16 at 21:31; Status DC Acetaminophen (Tylenol) 500 mg Q6HRS PO ; Start 07/10/16 at 00:00; Stop at 14:49; Status DC Aspirin (Ecotrin) 81 mg DAILY PO ; Start 07/10/16 at 09:00 Carbidopa/Levodopa (Sinemet 25/100) 1 tab TID PO ; Start 07/10/16 at 09:00 Duloxetine HCl (Cymbalta) 30 mg DAILY PO ; Start 07/10/16 at 09:00 Erythromycin (E-Mycin) 125 mg QID PO ; Start 07/10/16 at 09:00; Stop 07/10/16 at 14:49; Status DC Ferrous Sulfate (Feosol) 325 mg DAILY PO ; Start 07/10/16 at 09:00 Glipizide (Glucotrol) 5 mg BIDWMEALS PO ; Start 07/10/16 at 08:00; Stop at 12:48; Status DC Acetaminophen/ Hydrocodone Bitart (Lortab 5/325) 1 tab PRN Q6HRS PRN PO PAIN; Start 07/09/16 at 22:30 Albuterol/ Ipratropium (Duoneb) 3 ml Q4HRS IH Last administered on 07/10/16 12 :57; Start 07/10/16 at 00:00 Isosorbide Mononitrate (Ismo) 20 mg TID PO ; Start 07/10/16 at 09:00; Stop 07/10 at 12:48; Status DC Lisinopril (Prinivil) 40 mg DAILY PO ; Start 07/10/16 at 09:00; Stop 07/10/16 at 12:48; Status DC Metoprolol Tartrate (Lopressor) 50 mg BID PO ; Start 07/10/16 at 09:00 Oxybutynin Chloride (Ditropan) 5 mg DAILY PO ; Start 07/10/16 at 09:00; Stop 03/16 at 12:48; Status DC Polyethylene Glycol (miraLAX PACKET) 17 gm DAILY PO ; Start 07/10/16 at 09:00; Stop 07/10/16 at 14:49; Status DC Ropinirole HCl (Requip) 1 mg TID PO ; Start 07/10/16 at 09:00 Senna/Docusate Sodium (Senna Plus) 1 tab BID PO ; Start 07/10/16 at 09:00; Stop 07/10/16 at 14:49; Status DC Silver Sulfadiazine (Silvadene) 1 bijal DAILY TP ; Start 07/10/16 at 09:00; Stop 07/10/16 at 14:49; Status DC Dextrose 12.5 gm PRN Q15MIN PRN IV SEE COMMENTS; Start 07/10/16 at 08:30 Glipizide (Glucotrol) 10 mg BIDWMEALS PO ; Start 07/10/16 at 17:00 Isosorbide Mononitrate (Imdur) 30 mg DAILY PO ; Start 07/10/16 at 12:45 Spironolactone (Aldactone) 25 mg DAILY PO ; Start 07/10/16 at 12:45 Bumetanide (Bumex) 2 mg DAILY PO ; Start 07/10/16 at 12:45 Atorvastatin Calcium (Lipitor) 20 mg QHS PO ; Start 07/10/16 at 21:00 Hydralazine HCl (Apresoline) 10 mg PRN Q4HRS PRN IVP ELEVATED BP, SEE COMMENTS ; Start 07/10/16 at 13:00 Ascorbic Acid (Vitamin C) 500 mg DAILY PO ; Start 07/10/16 at 15:00 Docusate Sodium (Colace) 100 mg BID PO ; Start 07/10/16 at 21:00 Insulin Aspart (Novolog) 30 units DAILYBFRSUP SQ ; Start 07/10/16 at 16:30 Magnesium Oxide (Magnesium Oxide) 400 mg BID PO ; Start 07/10/16 at 21:00 Gabapentin (Neurontin) 600 mg TID PO ; Start 07/10/16 at 15:00 Insulin Aspart (Novolog) 20 units BIDWBKFT/EDUIN SQ ; Start 07/11/16 at 08:00 Insulin Detemir (Levemir) 80 units DAILY08 SQ ; Start 07/11/16 at 08:00 Linagliptin (Tradjenta) 5 mg DAILY PO ; Start 07/11/16 at 09:00 Terazosin HCl (Hytrin) 2 mg QHS PO ; Start 07/10/16 at 21:00 Active Scripts Active Reported Isosorbide Mononitrate 10 Mg Tablet 30 Mg PO DAILY Ascorbic Acid 500 Mg Tablet 500 Mg PO DAILY Magnesium Oxide 400 Mg Tablet 1 Tab PO BID Bumetanide 2 Mg Tablet 1 Tab PO DAILY Glipizide 10 Mg Tablet 1 Tab PO BID Atorvastatin Calcium 20 Mg Tablet 1 Tab PO DAILY Terazosin Hcl 2 Mg Capsule 1 Cap PO QHS Docusate Sodium 100 Mg Capsule 1 Cap PO BID Spironolactone 25 Mg Tablet 1 Tab PO DAILY Onglyza (Saxagliptin Hcl) 5 Mg Tablet 2.5 Mg PO DAILY Levemir (Insulin Detemir) 100 Unit/1 Ml Vial 80 Unit SQ DAILY08 Novolog (Insulin Aspart) 100 Unit/1 Ml Vial 30 Unit SQ DAILYBFRSUP Cymbalta (Duloxetine Hcl) 30 Mg Capsule. 1 Cap PO DAILY Sinemet 25-100 Mg Tablet (Carbidopa/Levodopa) 1 Each Tablet 1 Tab PO TID Metoprolol Tartrate 50 Mg Tablet 1 Tab PO BID Ropinirole Hcl 1 Mg Tablet 1 Mg PO TID Omeprazole 20 Mg Capsule. 20 Mg PO DAILY Novolog (Insulin Aspart) 100 Unit/1 Ml Cartridge 20 Unit SQ BIDWBKFT/EDUIN Gabapentin 600 Mg Tablet 600 Mg PO TID Ferrous Sulfate 325 Mg Tablet 325 Mg PO DAILY Aspir 81 (Aspirin) 81 Mg Tablet. 81 Mg PO DAILY Vitals/I & O Vital Sign - Last 24 Hours 07/09/16 07/09/16 07/09/16 07/09/16 18:28 18:43 19:13 19:43 Temp 97.9 97.9 Pulse 68 64 66 66 Resp B/P 157/70 158/61 206/89 223/88 Pulse Ox 97 98 97 O2 Delivery Room Air Room Air Room Air Room Air 07/09/16 07/09/16 07/09/16 07/09/16 20:00 20:30 21:00 21:30 Pulse 66 64 70 68 Resp 23 B/P 226/126 203/87 188/75 185/75 Pulse Ox 96 98 94 97 07/09/16 07/09/16 07/09/16 07/09/16 22:00 22:30 23:00 23:30 Pulse 66 74 76 74 Resp 18 44 28 36 B/P 173/72 206/91 188/78 162/68 Pulse Ox 97 96 95 94 O2 Delivery Room Air 07/10/16 07/10/16 07/10/16 07/10/16 00:30 00:30 02:45 03:53 Temp 98.3 98.3 98.2 98.3 98.3 98.2 Pulse 75 75 82 Resp 18 18 18 B/P 156/61 156/61 134/46 Pulse Ox 96 96 93 O2 Delivery Room Air Room Air Room Air Room Air 07/10/16 07/10/16 07/10/16 07/10/16 04:41 07:59 08:00 10:08 Temp 97.2 97.2 Pulse 81 Resp 20 B/P 143/64 Pulse Ox 96 93 95 O2 Delivery Room Air Room Air Room Air Room Air 07/10/16 07/10/16 11:55 12:58 Temp 97.3 97.3 Pulse 93 Resp 21 B/P 159/58 Pulse Ox 93 95 O2 Delivery Room Air Room Air Intake and Output 07/09/16 07/09/16 07/10/16 15:00 23:00 07:00 Intake Total 500 ml Output Total 550 ml Balance -50 ml DRE BARBOZA MD Jul 10, 2016 15:36
[2016-07-10] MEDS ORDERED: MAGNESIUM SULFATE 2GM 50 ML IV PRN (15:45)
[2016-07-10] MEDS: GLIPIZIDE 5 MG TABLET PO SCH (16:47)
[2016-07-10] MEDS ORDERED: SULFUR HEXAFLUORIDE MICROSPHR 25 MG VIAL. IVP ONE ×2 (17:00→17:33)
[2016-07-10] MEDS: INSULIN ASPART 300 UNITS/3 ML INSULN.PEN SQ SCH ×2 (17:00→18:09)
[2016-07-10] MEDS: DULOXETINE HCL 30 MG CAPSULE.DR. PO SCH (18:01)
[2016-07-10] MEDS: ASCORBIC ACID 500 MG TABLET PO SCH (18:01)
[2016-07-10] MEDS: ASPIRIN ENTERIC COATED 81 MG TABLET.DR. PO SCH (18:02)
[2016-07-10] MEDS: FERROUS SULFATE 325 MG TABLET PO SCH (18:02)
[2016-07-10] MEDS: ISOSORBIDE MONONITRATE ER 30 MG TAB.ER.24H PO SCH (18:02)
--- NOTE | 2016-07-10 20:46 | RAD ---
Ventilation-Perfusion Lung Scintigraphy Indication: chest pain for 2 days, short of breath off and on for years per pt. COPD, asthma, sent CXR for comparison. 15.0mci Xe133 and 5.5mCi Tc99m MAA Reason: r/o PE / Spl. Instructions: / History: Findings: Comparison chest radiograph 07/09/2016 demonstrates no significant consolidation or pleural effusion. The Tc-99m DTPA aerosol images show somewhat heterogeneous uptake of the radiotracer but no peripheral wedge-shaped defects are identified. The heterogeneity can be seen in patients with pulmonary emphysematous disease. The perfusion images demonstrate uniform and normal distribution of pulmonary perfusion. No evidence for retention. No mismatch defects are identified. Impression: - Low probability for pulmonary embolism. Electronically signed by: Atilio Collazo (Jul 10, 2016 20:45:25)
[2016-07-10] MEDS ORDERED: ATORVASTATIN CALCIUM 20 MG TABLET PO SCH (21:00)
[2016-07-10] MEDS ORDERED: TERAZOSIN 1 MG CAPSULE. PO SCH (21:00)
[2016-07-10] MEDS: DOCUSATE SODIUM 100 MG CAPSULE PO SCH (21:14)
[2016-07-10] MEDS: MAGNESIUM OXIDE 400 MG TABLET PO SCH (21:14)
[2016-07-11 03:20] VITALS: BP 127/73
[2016-07-11] MEDS: IPRATRPIUM/ALBUTEROL 0.5/2.5MG 3 ML NEBU. IH SCH ×3 (04:19→11:30)
[2016-07-11 06:34] LABS: ALBUMIN 2.9 g/dL (3.4-5.0); CALCIUM 8.6 mg/dL (8.5-10.1); CREATININE 1.7 mg/dL (0.7-1.3); GFR 39.5; PHOSPHORUS 3.9 mg/dL (2.6-4.7); POTASSIUM 4.6 mmol/L (3.5-5.1)
[2016-07-11 07:00] VITALS: BP 178/72
[2016-07-11] MEDS ORDERED: INSULIN DETEMIR 300 UNITS/3 ML INSULN.PEN. SQ SCH (08:00)
[2016-07-11] MEDS: CARBIDOPA/LEVODOPA 25/100MG TABLET PO SCH ×2 (09:00→14:02)
[2016-07-11] MEDS ORDERED: LINAGLIPTIN 5 MG TABLET PO SCH (09:00)
[2016-07-11] MEDS: ASCORBIC ACID 500 MG TABLET PO SCH (09:24)
[2016-07-11] MEDS: DOCUSATE SODIUM 100 MG CAPSULE PO SCH (09:24)
[2016-07-11] MEDS: GABAPENTIN 300 MG CAPSULE. PO SCH ×2 (09:24→14:02)
[2016-07-11] MEDS: rOPINIRole 1 MG TABLET. PO SCH ×2 (09:25→14:02)
[2016-07-11] MEDS: DULOXETINE HCL 30 MG CAPSULE.DR. PO SCH (09:25)
[2016-07-11] MEDS: MAGNESIUM OXIDE 400 MG TABLET PO SCH (09:25)
[2016-07-11] MEDS: ASPIRIN ENTERIC COATED 81 MG TABLET.DR. PO SCH (09:25)
[2016-07-11] MEDS: FERROUS SULFATE 325 MG TABLET PO SCH (09:25)
[2016-07-11] MEDS: ISOSORBIDE MONONITRATE ER 30 MG TAB.ER.24H PO SCH (09:26)
[2016-07-11] MEDS: GLIPIZIDE 5 MG TABLET PO SCH (09:26)
[2016-07-11] MEDS: METOPROLOL TART IMMED RELEASE 50 MG TABLET PO SCH (09:26)
[2016-07-11] MEDS: INSULIN ASPART 300 UNITS/3 ML INSULN.PEN SQ SCH ×2 (09:39→12:50)
[2016-07-11 10:58] VITALS: BP 121/83
[2016-07-11 15:00] VITALS: BP 144/68
[2016-07-11] MEDS ORDERED: IPRATRPIUM/ALBUTEROL 0.5/2.5MG 3 ML NEBU. IH SCH (17:00)
--- NOTE | 2016-07-12 09:51 | DS ---
DATE OF DISCHARGE: 07/11/2016 DISCHARGE DIAGNOSES: 1. Chest pain, likely due to musculoskeletal. 2. Hypertension, controlled. 3. Coronary artery disease, nonobstructing. 4. Hyperlipidemia. 5. Hyperkalemia. 6. Acute kidney injury on chronic kidney disease. 7. Chronic indwelling Walker catheter. 8. Type 2 diabetes mellitus, insulin-dependent. 9. Questionable dementia. 10. Morbid obesity. BRIEF HOSPITAL COURSE: A 75-year-old male patient was admitted to the hospital for chest pain and he was evaluated by Cardiology and 3 sets of troponin negative for ACS. However, the patient had a mild elevation of glucose. Given his immobility, the patient had VQ scan to rule out any PE, which is negative. He was evaluated by Cardiology and chest pain likely musculoskeletal in nature and the patient is recommended to follow up with Cardiology team and PCP further workup for his chest pain. DISCHARGE EXAMINATION: GENERAL: Alert, oriented x 3. HEART: S1, S2 present. LUNGS: Clear to auscultation. ABDOMEN: Soft, nontender, no organomegaly. EXTREMITIES: No edema. DISCHARGE DISPOSITION: Home. DISCHARGE CONDITION: Stable. PROGNOSIS: Guarded. FOLLOWUP: With primary care doctor for further workup and also Nephrology to monitor his renal function. MEDICATIONS: Reviewed and reconciled. Please see MRAD. Total time spent for discharge is 32 minutes for patient education, counseling, and coordination of care. DRE BARBOZA MD DR: JOHN/deepak JOB#: [id number] / [id number] MELANIE
== END 2016-07-11 17:30 | disposition home or self-care (01) | DRG 291 ==
LOC: ER 18:28 → 2 NORTH 21:13
PROVIDERS: ADMIT Internal Medicine; ATTEND Internal Medicine
DX: I13.2 Hypertensive heart and chronic kidney disease with heart failure and with stage 5 chronic kidney disease, or end stage renal disease (principal); N18.6 End stage renal disease; J96.10 Chronic respiratory failure, unspecified whether with hypoxia or hypercapnia; N17.9 Acute kidney failure, unspecified; Z68.43 Body mass index [BMI] 50.0-59.9, adult; R07.89 Other chest pain; E11.22 Type 2 diabetes mellitus with diabetic chronic kidney disease; E11.40 Type 2 diabetes mellitus with diabetic neuropathy, unspecified; E66.01 Morbid (severe) obesity due to excess calories; E78.5 Hyperlipidemia, unspecified; E87.5 Hyperkalemia; F03.90 Unspecified dementia, unspecified severity, without behavioral disturbance, psychotic disturbance, mood disturbance, and anxiety; F41.9 Anxiety disorder, unspecified; G20 Parkinson's disease; G25.81 Restless legs syndrome; G47.33 Obstructive sleep apnea (adult) (pediatric); I25.10 Atherosclerotic heart disease of native coronary artery without angina pectoris; I50.9 Heart failure, unspecified; J44.9 Chronic obstructive pulmonary disease, unspecified; J45.909 Unspecified asthma, uncomplicated; M19.90 Unspecified osteoarthritis, unspecified site; G89.29 Other chronic pain; F32.9 Major depressive disorder, single episode, unspecified; D64.9 Anemia, unspecified; K21.9 Gastro-esophageal reflux disease without esophagitis; N31.9 Neuromuscular dysfunction of bladder, unspecified; Z79.4 Long term (current) use of insulin; Z82.49 Family history of ischemic heart disease and other diseases of the circulatory system; Z83.3 Family history of diabetes mellitus; Z86.73 Personal history of transient ischemic attack (TIA), and cerebral infarction without residual deficits; Z99.3 Dependence on wheelchair; Z90.49 Acquired absence of other specified parts of digestive tract; Z88.6 Allergy status to analgesic agent; Z88.8 Allergy status to other drugs, medicaments and biological substances
CPT/HCPCS: 36415; 71010; 78582; 80048; 80061; 80069; 82947; 83735; 84484; 85018; 85027; 93005; 94250; 94640; 94760; 96360; 96361; 96372; 96374; A9540; A9558; J1650; J1815; J7040; J7620; 97530; 99285-25; Q9950